=== PATIENT | male | born 1945 | race Caucasian/White ===

== ENCOUNTER → 2023-06-30 | Outpatient (CLI) | payer MEDICARE, OTHER | END | disposition home or self-care (01) | LOC: RESCLI 13:24 | PROVIDERS: ATTEND Student in an Organized Health Care Education/Training Program | DX: E11.9 Type 2 diabetes mellitus without complications (principal); I10 Essential (primary) hypertension; E78.5 Hyperlipidemia, unspecified; F32.9 Major depressive disorder, single episode, unspecified; Z98.890 Other specified postprocedural states; Z82.49 Family history of ischemic heart disease and other diseases of the circulatory system; Z79.899 Other long term (current) drug therapy ==

== ENCOUNTER → 2024-07-02 | Outpatient (CLI) | payer MEDICARE ==
[~2024-07-02] MED LIST: ACTOS30 M1 PO; ASPIRIN81 M1 PO; DOXYCYCLINE HY100 M3 PO; FIBER625 MG PO; Humalog SQ; LANTUS SOL100 UNIT/1 SC; METOPROLOL SUCC50 M1 PO; PACERONE200 MG PO; PROTONIX20 MG PO; SERTRALINE HYDR50 MG PO; SIMVASTATIN40 MG PO; TOPROL XL25 MG PO; VITAMIN D3125 MC1 PO
== END | disposition home or self-care (01) ==
LOC: RESCLI 02:49
PROVIDERS: ATTEND Student in an Organized Health Care Education/Training Program
DX: I10 Essential (primary) hypertension (principal); E11.9 Type 2 diabetes mellitus without complications; E78.5 Hyperlipidemia, unspecified; F32.9 Major depressive disorder, single episode, unspecified; Z98.890 Other specified postprocedural states; Z82.49 Family history of ischemic heart disease and other diseases of the circulatory system; Z79.899 Other long term (current) drug therapy

== ENCOUNTER 2025-05-28 11:38 | Emergency (ER) | payer MEDICARE ==
[~2025-05-28] VITALS: Ht 172.7 cm; Wt 104.3 kg
[2025-05-28] MEDS ORDERED: ROSUVASTATIN CA20 MG PO (12:07)
[2025-05-28] MEDS ORDERED: ASPIRIN CHEWABL81 MG PO (12:08)
[2025-05-28] MEDS ORDERED: ZESTRIL10 MG PO (12:08)
[2025-05-28] MEDS ORDERED: URSODIOL300 M1 PO (12:09)
[2025-05-28] MEDS ORDERED: HUMALOG100 UNIT/2 SC (12:13)
[2025-05-28] MEDS ORDERED: LANTUS100 UNIT/1 SC (12:15)
[2025-05-28] MEDS ORDERED: FISH OIL CONC1000 M2 PO (12:16)
[2025-05-28] MEDS ORDERED: TAMSULOSIN HCL0.4 MG PO (12:16)
[2025-05-28 12:31] LABS: MEAN CELL VOLUME 91.4 fl (80.0-94.0); MEAN CORPUSCULAR HGB 28.5 pg (27.0-31.0); MEAN PLATELET VOLUME 10.4 fl (9.6-12.3); NUCLEATED RED BLOOD CELL 0.0 % (0.0-0.0); NUCLEATED RED BLOOD CELL 0.0 10*3/uL (0.0-0.0); PLATELET COUNT AUTOMATED 328 10*3/uL (130-400); RED CELL DISTRI WIDTH 12.2 % (0-14.5)
[2025-05-28 12:32] LABS: MANUAL DIFF REFLEX YES
[2025-05-28] MEDS ORDERED: IOHEXOL 300 MG/ML 100 ML VIAL IV ONE (12:35)
[2025-05-28 12:44] LABS: BILIRUBIN 1+ (Negative); BLOOD Negative (Negative); CLARITY Cloudy (Clear); COLOR Dark Yellow (Yellow); KETONE 1+ (Negative); LEUKO ESTERASE 3+ (Negative); NITRITE Negative (Negative); SPECIFIC GRAVITY 1.015 (1.001-1.030); UROBILINOGEN 2.0 E.U./dl (0.0-1.0)
[2025-05-28 12:53] LABS: PLATELET SUFFICIENCY NORMAL (NORMAL)
[2025-05-28 12:55] LABS: BUN 35.0 mg/dl (9-23); SGPT/ALT 237.0 U/L (5-49)
[2025-05-28 12:55] LABS: PH 8.5 (4.5-8.0)
[2025-05-28 12:57] LABS: BACTERIA 4+; MUCOUS 1+; TRIP PHOS CRYSTALS 1+
== END 2025-05-28 18:47 | disposition short-term general hospital (02) ==
LOC: ED 11:38
PROVIDERS: Internal Medicine
DX: K81.9 Cholecystitis, unspecified (principal); N39.0 Urinary tract infection, site not specified; R74.01 Elevation of levels of liver transaminase levels; R30.0 Dysuria; E11.9 Type 2 diabetes mellitus without complications; Z79.4 Long term (current) use of insulin; Z79.82 Long term (current) use of aspirin; Z79.899 Other long term (current) drug therapy; Z98.890 Other specified postprocedural states

== ENCOUNTER 2025-08-07 13:39 | Inpatient (IN) | payer MEDICARE ==
[~2025-08-07] VITALS: Ht 172.7 cm; Wt 80.7 kg
[~2025-08-07 13:39] MED LIST changes: +ASPIRIN CHEWABL81 MG PO; +FISH OIL CONC1000 M2 PO; +HUMALOG100 UNIT/2 SC; +LANTUS100 UNIT/1 SC; +ROSUVASTATIN CA20 MG PO; +TAMSULOSIN HCL0.4 MG PO; +URSODIOL300 M1 PO; +ZESTRIL10 MG PO
[2025-08-07 13:43] VITALS: BP 129/58
[2025-08-07] MEDS ORDERED: SODIUM CHLORIDE 0.9% 1,000 ML IV ONE ×2 (13:45→20:10)
[2025-08-07 14:12] LABS: BASO # 0.1 10*3/uL (0.0-0.1); BASO % 0.5 % (0.0-1.0); EOS # 0.2 10*3/uL (0.0-0.4); EOS % 2.4 % (1.0-4.0); MEAN CELL VOLUME 92.1 fl (80.0-94.0); MEAN CORPUSCULAR HGB 28.8 pg (27.0-31.0); MEAN PLATELET VOLUME 10.9 fl (9.6-12.3); MONO # 1.0 10*3/uL (0.1-1.0); MONO % 9.8 % (3.0-9.0); NEUT # 7.3 10*3/uL (2.3-7.9); NEUT % 73.5 % (47.0-73.0); NUCLEATED RED BLOOD CELL 0.0 % (0.0-0.0); NUCLEATED RED BLOOD CELL 0.0 10*3/uL (0.0-0.0); PLATELET COUNT AUTOMATED 250 10*3/uL (130-400); RED CELL DISTRI WIDTH 14.1 % (0-14.5)
[2025-08-07 14:41] LABS: BUN 25.0 mg/dl (9-23)
[2025-08-07] MEDS ORDERED: FLUCONAZOLE200 MG PO (15:26)
[2025-08-07] MEDS ORDERED: AMLODIPINE BESYL5 MG PO (15:27)
[2025-08-07 17:21] LABS: BILIRUBIN Negative (Negative); BLOOD 2+ (Negative); CLARITY Clear (Clear); COLOR Yellow (Yellow); KETONE Trace (Negative); LEUKO ESTERASE 1+ (Negative); NITRITE Negative (Negative); PH 7.5 (4.5-8.0); SPECIFIC GRAVITY 1.015 (1.001-1.030); UROBILINOGEN 0.2 E.U./dl (0.0-1.0)
[2025-08-07 17:35] LABS: BACTERIA 1+; WBC 16-20 wbc/hpf (0-5)
[2025-08-07 18:39] VITALS: BP 130/66
[2025-08-07] MEDS ORDERED: ACETAMINOPHEN 650 MG SUPP R PRN (20:00)
[2025-08-07] MEDS ORDERED: BISACODYL 10 MG SUPP R PRN (20:00)
[2025-08-07] MEDS ORDERED: Acetaminophen/Hydrocodone 5 MG/325 MG TABLET PO PRN (20:00)
[2025-08-07] MEDS ORDERED: ACETAMINOPHEN 325 MG TAB PO PRN (20:00)
[2025-08-07] MEDS ORDERED: BISACODYL 5 MG TAB PO PRN (20:00)
[2025-08-07] MEDS ORDERED: DEXTROSE 50% 25 GM/50 ML VIAL IV PRN (20:25)
[2025-08-07] MEDS ORDERED: INSULIN LISPRO 1 UNIT/0.01 ML SQ SCH (22:00)
[2025-08-07] MEDS ORDERED: Insulin Glargine, Recombinan 1 UNIT/0.01 ML SC SCH (22:00)
[2025-08-08] VITALS: BP 100/60
[2025-08-08] MEDS ORDERED: Ondansetron Hydrochloride 4 MG/2 ML VIAL IV PRN (04:55)
[2025-08-08 06:09] LABS: BASO # 0.0 10*3/uL (0.0-0.1); BASO % 0.5 % (0.0-1.0); EOS # 0.3 10*3/uL (0.0-0.4); EOS % 3.2 % (1.0-4.0); MEAN CELL VOLUME 90.0 fl (80.0-94.0); MEAN CORPUSCULAR HGB 29.1 pg (27.0-31.0); MEAN PLATELET VOLUME 11.1 fl (9.6-12.3); MONO # 0.9 10*3/uL (0.1-1.0); MONO % 10.8 % (3.0-9.0); NEUT # 5.1 10*3/uL (2.3-7.9); NEUT % 62.3 % (47.0-73.0); NUCLEATED RED BLOOD CELL 0.0 % (0.0-0.0); NUCLEATED RED BLOOD CELL 0.0 10*3/uL (0.0-0.0); PLATELET COUNT AUTOMATED 241 10*3/uL (130-400); RED CELL DISTRI WIDTH 14.2 % (0-14.5)
[2025-08-08 06:49] LABS: BUN 19 mg/dl (9-23)
[2025-08-08 08:26] VITALS: BP 135/47
[2025-08-08] MEDS ORDERED: LISINOPRIL 10 MG TAB PO SCH (09:00)
[2025-08-08] MEDS ORDERED: URSODIOL 300 MG CAP PO SCH (10:00)
[2025-08-08] MEDS ORDERED: ASPIRIN, CHEWABLE 81 MG TAB PO SCH (10:00)
[2025-08-08 12:09] VITALS: BP 124/53
[2025-08-08] MEDS ORDERED: HEEL PROTECTOR DEVICE ONE (14:37)
[2025-08-08 16:27] VITALS: BP 134/42
[2025-08-08 20:00] VITALS: BP 127/48
[2025-08-08] MEDS ORDERED: ATORVASTATIN CALCIUM 80 MG TAB PO SCH (22:00)
[2025-08-09] VITALS: BP 131/73
[2025-08-09 06:09] LABS: BASO # 0.0 10*3/uL (0.0-0.1); BASO % 0.5 % (0.0-1.0); EOS # 0.3 10*3/uL (0.0-0.4); EOS % 3.7 % (1.0-4.0); MEAN CELL VOLUME 89.8 fl (80.0-94.0); MEAN CORPUSCULAR HGB 28.5 pg (27.0-31.0); MEAN PLATELET VOLUME 10.9 fl (9.6-12.3); MONO # 0.9 10*3/uL (0.1-1.0); MONO % 11.5 % (3.0-9.0); NEUT # 4.6 10*3/uL (2.3-7.9); NEUT % 61.4 % (47.0-73.0); NUCLEATED RED BLOOD CELL 0.0 % (0.0-0.0); NUCLEATED RED BLOOD CELL 0.0 10*3/uL (0.0-0.0); PLATELET COUNT AUTOMATED 258 10*3/uL (130-400); RED CELL DISTRI WIDTH 14.3 % (0-14.5)
[2025-08-09 08:00] VITALS: BP 129/50
[2025-08-09 08:24] LABS: BUN 16 mg/dl (9-23)
[2025-08-09 12:00] VITALS: BP 113/53
[2025-08-09] MEDS ORDERED: OMNICEF300 MG PO (13:36)
[2025-08-09] MEDS ORDERED: LANTUS100 UNIT/1 SC (13:36)
== END 2025-08-09 16:16 | disposition home health service (06) | DRG 689 ==
LOC: ED 13:39 → 5E 18:07 → EDHOLD 18:07 → 5E 22:37
PROVIDERS: Emergency Medicine; Student in an Organized Health Care Education/Training Program; ADMIT Family Medicine; ATTEND Family Medicine
DX: N39.0 Urinary tract infection, site not specified (principal); G93.41 Metabolic encephalopathy; D64.9 Anemia, unspecified; N18.31 Chronic kidney disease, stage 3a; E11.65 Type 2 diabetes mellitus with hyperglycemia; F32.A Depression, unspecified; E78.5 Hyperlipidemia, unspecified; Z66 Do not resuscitate; E55.9 Vitamin D deficiency, unspecified; Z98.890 Other specified postprocedural states; Z86.73 Personal history of transient ischemic attack (TIA), and cerebral infarction without residual deficits; Z79.4 Long term (current) use of insulin; Z83.6 Family history of other diseases of the respiratory system; Z79.82 Long term (current) use of aspirin; Z79.899 Other long term (current) drug therapy